=== PATIENT | female | born 1995 | race African-American/Black ===

== ENCOUNTER 2019-12-01 16:15 | Inpatient (IN) | payer MEDICAID, SELFPAY ==
[~2019-12-01] VITALS: Ht 167.6 cm; Wt 113.4 kg
[2019-12-01] MEDS ORDERED: PENICILLIN G BENZATHINE L-A 1.2 MU/2 ML SYR IM ONE ×2 (17:10→17:51)
[2019-12-01 18:30] VITALS: BP 122/66
[2019-12-01] MEDS ORDERED: PRETAB PO (18:37)
[2019-12-01] MEDS ORDERED: FERR-212 PO (18:37)
[2019-12-01] MEDS ORDERED: OXYTOCIN 20 UNITS/LR PREMIX 1,000 ML IV SCH (19:55)
[2019-12-01 21:19] LABS: APPEARANCE,URINE HAZY (CLEAR); BILIRUBIN,URINE NEGATIVE (NEGATIVE); BLOOD, URINE NEGATIVE (NEGATIVE); COLOR,URINE YELLOW (YELLOW); LEUKOCYTE ESTERASE ,URINE 3+ (NEGATIVE); NITRITE, URINE NEGATIVE (NEGATIVE); PH,URINE 6.5 (5.0-9.0); UGLUCOSE NEGATIVE (NEGATIVE)
[2019-12-01 21:27] LABS: BARBITURATE, URINE NEGATIVE ng/ml (NEG <=200); BENZODIAZEPINE, URINE NEGATIVE ng/mL (NEG <=200); CANNABINOID, URINE NEGATIVE ng/mL (NEG <=50); COCAINE, URINE NEGATIVE ng/mL (NEG <=300); OPIATE, URINE NEGATIVE ng/mL (NEG <=2000); PHENCYCLIDINE SCREEN,URINE NEGATIVE ng/mL (NEG <=25)
[2019-12-01 21:30] LABS: RBC,URINE 0-5 /HPF (0-5); WBC,URINE 60-80 /HPF (0-5)
[2019-12-01 21:31] LABS: YEAST,URINE Few /HPF (None Seen)
[2019-12-01 21:38] LABS: BASOPHILS % (AUTO) 0.4 % (0.0-2.0); EOSINOPHILS # (AUTO) 0.1 K/uL (0-0.4); EOSINOPHILS % (AUTO) 1.3 % (0.0-4.0); HEMATOCRIT 27.3 % (36-48); HEMOGLOBIN 8.4 g/dL (12.0-16.0); LYMPHOCYTES # (AUTO) 1.9 K/uL (2.5-16.5); LYMPHOCYTES % (AUTO) 23.4 % (20.5-51.1); MEAN CORPUSCULAR HEMOGLOBIN 22 pg (27-31); MEAN CORPUSCULAR HGB CONC 31 g/dL (33-37); MEAN CORPUSCULAR VOLUME 73.3 fL (80-94); MONOCYTES # (AUTO) 0.9 K/uL (0.8-1.0); MONOCYTES % (AUTO) 10.8 % (1.7-9.3); NEUTROPHILS # (AUTO) 5.1 K/uL (1.8-7.7); NEUTROPHILS % (AUTO) 64.1 % (42.2-75.2); PLATELET COUNT (AUTO) 215 K/uL (140-450); RED BLOOD CELL COUNT(AUTO) 3.72 MIL/uL (4.20-5.40); RED CELL DISTRIBUTION WIDTH 18.1 % (11.6-13.7); WHITE BLOOD COUNT (AUTO) 7.9 K/uL (4.8-10.8)
[2019-12-01 21:53] LABS: ALBUMIN 2.5 g/dL (3.4-5.0); CARBON DIOXIDE 21.6 mmol/L (21-32); CREATININE 0.8 mg/dL (0.6-1.3); POTASSIUM 3.6 mmol/L (3.5-5.1); TOTAL BILIRUBIN 0.2 mg/dL (0.0-1.0)
[2019-12-02] MEDS ORDERED: MORPHINE SULFATE 5 MG/ML VIAL IVP PRN (08:00)
[2019-12-02] MEDS ORDERED: ONDANSETRON 4 MG/2 ML VIAL IVP PRN (08:00)
[2019-12-02] MEDS ORDERED: ONDANSETRON 4 MG/2 ML VIAL ONE (08:04)
[2019-12-02] MEDS ORDERED: MORPHINE SULFATE 10 MG/ML VIAL ONE (08:04)
[2019-12-02] MEDS ORDERED: ROPIVACAINE 0.2%/NS PREMIX 200 ML EPI ONE (09:16)
[2019-12-02] MEDS: LACTATED RINGERS 1,000 ML IV SCH ×2 (09:54→16:58)
[2019-12-02] MEDS ORDERED: ROPIVACAINE 0.2%/NS PREMIX 100 ML EPI SCH (10:00)
[2019-12-02] MEDS ORDERED: ROPIVACAINE 0.2%/NS PREMIX 200 ML EPI SCH (10:15)
[2019-12-02] MEDS ORDERED: METHYLERGONOVINE 0.2 MG/ML AMP IM PRN (20:10)
[2019-12-02] MEDS ORDERED: MEASLES, MUMPS, AND RUBELLA 1 VIAL SQVAC PRN (20:10)
[2019-12-02] MEDS ORDERED: SIMETHICONE 80 MG TAB.CHEW PO PRN (20:10)
[2019-12-02] MEDS ORDERED: OXYTOCIN 10 UNITS/ML VIAL IM PRN (20:10)
[2019-12-02] MEDS ORDERED: BENZOCAINE/MENTHOL 20%-0.5% 60 GM CAN TP PRN (20:10)
[2019-12-02] MEDS ORDERED: IBUPROFEN 800 MG TAB PO PRN (20:10)
[2019-12-02] MEDS ORDERED: METHYLERGONOVINE 0.2 MG TAB PO PRN (20:10)
[2019-12-02] MEDS ORDERED: IBUPROFEN 600 MG TAB PO PRN (20:10)
[2019-12-02] MEDS ORDERED: DOCUSATE SODIUM 100 MG GELCAP PO PRN (20:10)
[2019-12-02] MEDS ORDERED: bisacodyL 5 MG TABEC PO PRN (20:10)
[2019-12-02] MEDS ORDERED: IBUPROFEN 600 MG TAB ONE (21:00)
[2019-12-03] MEDS: IBUPROFEN 600 MG TAB PO PRN ×3 (04:33→18:20)
[2019-12-03 07:24] LABS: HEMATOCRIT 25.3 % (36-48); HEMOGLOBIN 7.8 g/dL (12.0-16.0)
--- NOTE | 2019-12-03 09:59 | NUR ---
PATIENT HAS BEEN SCREENED AND CATEGORIZED LOW NUTRITION RISK. PATIENT WILL BE SEEN WITHIN 7 DAYS OF ADMISSION. 12/07/[address]
[2019-12-03] MEDS ORDERED: FLUCONAZOLE 100 MG TAB PO SCH (13:05)
[2019-12-04] MEDS: IBUPROFEN 600 MG TAB PO PRN (00:49)
[2019-12-04 07:18] LABS: HEMOGLOBIN 7.4 g/dL (12.0-16.0)
[2019-12-04] MEDS ORDERED: FLUCONAZOLE 100 MG TAB PO SCH (09:00)
== END 2019-12-04 09:50 | disposition home or self-care (01) | DRG 560 ==
LOC: MLD 16:15 → OBSVTOIN 20:03 → MFCC 12-02 22:20
PROVIDERS: ADMIT Obstetrics & Gynecology; ATTEND Obstetrics & Gynecology
PROC: 10E0XZZ Delivery of Products of Conception, External Approach (ICD-10-PCS; principal; 2019-12-02)
PROC: 10907ZC Drainage of Amniotic Fluid, Therapeutic from Products of Conception, Via Natural or Artificial Opening (ICD-10-PCS; 2019-12-02)
PROC: 3E033VJ Introduction of Other Hormone into Peripheral Vein, Percutaneous Approach (ICD-10-PCS; 2019-12-02)
PROC: 3E0R3BZ Introduction of Anesthetic Agent into Spinal Canal, Percutaneous Approach (ICD-10-PCS; 2019-12-02)
PROC: 00HU33Z Insertion of Infusion Device into Spinal Canal, Percutaneous Approach (ICD-10-PCS; 2019-12-02)
PROC: 3E0234Z Introduction of Serum, Toxoid and Vaccine into Muscle, Percutaneous Approach (ICD-10-PCS; 2019-12-02)
DX: O76 Abnormality in fetal heart rate and rhythm complicating labor and delivery (principal); O60.23X0 Term delivery with preterm labor, third trimester, not applicable or unspecified; Z3A.38 38 weeks gestation of pregnancy; Z37.0 Single live birth; O77.0 Labor and delivery complicated by meconium in amniotic fluid; O70.0 First degree perineal laceration during delivery; O98.12 Syphilis complicating childbirth; A53.9 Syphilis, unspecified; O13.4 Gestational [pregnancy-induced] hypertension without significant proteinuria, complicating childbirth; Z20.828 Contact with and (suspected) exposure to other viral communicable diseases; Z23 Encounter for immunization
CPT/HCPCS: G0378 ×4; 36415; 51702; 59409; 76805; 76819; 80053; 80305; 81001; 85018; 85025; 86592; 86886; 86900; 86901; 87086; 87653-90; J0561; J2270; J2405; J2590; J2795; J7120; Q0092; U0003-CS

== ENCOUNTER 2020-11-10 09:06 | Emergency (ER) | payer MEDICAID, OTHER, SELFPAY ==
[~2020-11-10] VITALS: Ht 165.1 cm; Wt 104.3 kg
[~2020-11-10 09:06] MED LIST: FERR-212 PO; PRETAB PO
[2020-11-10 09:08] VITALS: BP 147/75
--- NOTE | 2020-11-10 09:27 | NUR ---
25 YEAR OLD FEMALE COMPLAINS OF CRAMPING X 2 DAYS. PT STATES SHE IS WITH LMS 2 MONTHS AGO. PT DENIES VOMITTING OR DIARRHEA, BUT HAS NAUSEA. PT DENIES VAGINAL BLEEDING. AOX4, BREATHING EVEN AND UNLABORED, SKIN WARM AND DRY. BED IN LOWEST POSITION, LOCKED, BED RAIL UPX1. PMH - ASTHMA, SLEEP APNEA ALLERGIES - NKA
[2020-11-10 09:45] LABS: APPEARANCE,URINE HAZY (CLEAR); BILIRUBIN,URINE NEGATIVE (NEGATIVE); BLOOD, URINE NEGATIVE (NEGATIVE); COLOR,URINE YELLOW (YELLOW); LEUKOCYTE ESTERASE ,URINE 1+ (NEGATIVE); NITRITE, URINE NEGATIVE (NEGATIVE); UGLUCOSE NEGATIVE (NEGATIVE)
[2020-11-10 09:53] LABS: BASOPHILS # (AUTO) 0.1 K/uL (0.00-0.22); EOSINOPHILS # (AUTO) 0.1 K/uL (0-0.4); EOSINOPHILS % (AUTO) 1.4 % (0.0-4.0); HEMATOCRIT 30.8 % (36-48); HEMOGLOBIN 9.7 g/dL (12.0-16.0); LYMPHOCYTES # (AUTO) 2.1 K/uL (2.5-16.5); LYMPHOCYTES % (AUTO) 30.1 % (20.5-51.1); MEAN CORPUSCULAR HEMOGLOBIN 22 pg (27-31); MEAN CORPUSCULAR HGB CONC 32 g/dL (33-37); MEAN CORPUSCULAR VOLUME 69.6 fL (80-94); MONOCYTES # (AUTO) 0.6 K/uL (0.8-1.0); MONOCYTES % (AUTO) 8.6 % (1.7-9.3); NEUTROPHILS # (AUTO) 4.2 K/uL (1.8-7.7); NEUTROPHILS % (AUTO) 58.9 % (42.2-75.2); PLATELET COUNT (AUTO) 288 K/uL (140-450); RED BLOOD CELL COUNT(AUTO) 4.42 MIL/uL (4.20-5.40); RED CELL DISTRIBUTION WIDTH 20.7 % (11.6-13.7); WHITE BLOOD COUNT (AUTO) 7.1 K/uL (4.8-10.8)
[2020-11-10 10:01] LABS: RBC,URINE 0-5 /HPF (0-5)
[2020-11-10 10:02] LABS: URINE AMORPHOUS URATE 1+ /HPF (None Seen)
--- NOTE | 2020-11-10 10:30 | NUR ---
PT ALERT AND AWAKE, BREATHING EVEN AND UNLABORED. NO DISTRESS NOTED.
[2020-11-10 11:45] VITALS: BP 147/75
--- NOTE | 2020-11-10 11:45 | NUR ---
Patient discharged with v/s stable. Written and verbal after care instructions about abdominal pain during , first trimester of given and explained. Patient verbalized understanding. Ambulatory with steady gait. All questions addressed prior to discharge. Advised to follow up with PMD.
== END 2020-11-10 11:45 | disposition home or self-care (01) ==
LOC: MED 09:06
DX: O26.891 Other specified pregnancy related conditions, first trimester (principal); R10.30 Lower abdominal pain, unspecified; F17.210 Nicotine dependence, cigarettes, uncomplicated; J45.909 Unspecified asthma, uncomplicated; Z3A.10 10 weeks gestation of pregnancy; Z79.899 Other long term (current) drug therapy; Z71.6 Tobacco abuse counseling
CPT/HCPCS: 36415; 76801; 81001; 81025; 84702; 85025; 87086; 87186; 99284

== ENCOUNTER 2021-05-16 21:51 | Inpatient (IN) | payer OTHER, SELFPAY ==
[~2021-05-16] VITALS: Ht 167.6 cm; Wt 136.1 kg
[2021-05-16 22:37] VITALS: BP 120/56
[2021-05-16] MEDS ORDERED: OXYTOCIN 20 UNITS in LACTATED RINGERS 1,000 ML IV SCH (23:20)
[2021-05-16] MEDS ORDERED: AMPICILLIN 2,000 MG VIAL ONE (23:32)
[2021-05-16] MEDS: LACTATED RINGERS 1,000 ML IV SCH (23:38)
[2021-05-17] MEDS ORDERED: AMPICILLIN 2,000 MG in NACL 0.9% 100 ML IV SCH ×2
[2021-05-17 00:20] LABS: BASOPHILS % (AUTO) 0.5 % (0.0-2.0); BILIRUBIN,URINE NEGATIVE (NEGATIVE); BLOOD, URINE NEGATIVE (NEGATIVE); COLOR,URINE YELLOW (YELLOW); EOSINOPHILS # (AUTO) 0.2 K/uL (0-0.4); EOSINOPHILS % (AUTO) 2.6 % (0.0-4.0); HEMATOCRIT 28.3 % (36-48); HEMOGLOBIN 9.2 g/dL (12.0-16.0); LEUKOCYTE ESTERASE ,URINE 1+ (NEGATIVE); LYMPHOCYTES # (AUTO) 1.6 K/uL (2.5-16.5); LYMPHOCYTES % (AUTO) 25.8 % (20.5-51.1); MEAN CORPUSCULAR HEMOGLOBIN 25 pg (27-31); MEAN CORPUSCULAR HGB CONC 33 g/dL (33-37); MEAN CORPUSCULAR VOLUME 77.2 fL (80-94); MONOCYTES # (AUTO) 0.9 K/uL (0.8-1.0); MONOCYTES % (AUTO) 14.8 % (1.7-9.3); NEUTROPHILS # (AUTO) 3.6 K/uL (1.8-7.7); NEUTROPHILS % (AUTO) 56.3 % (42.2-75.2); NITRITE, URINE NEGATIVE (NEGATIVE); PH,URINE 6.5 (5.0-9.0); PLATELET COUNT (AUTO) 200 K/uL (140-450); RED BLOOD CELL COUNT(AUTO) 3.66 MIL/uL (4.20-5.40); UGLUCOSE NEGATIVE (NEGATIVE); WHITE BLOOD COUNT (AUTO) 6.4 K/uL (4.8-10.8)
[2021-05-17 00:30] LABS: APPEARANCE,URINE SLIGHTLY HAZY (CLEAR)
[2021-05-17 00:32] LABS: RBC,URINE 0-5 /HPF (0-5)
[2021-05-17 00:33] LABS: WBC,URINE 60-80 /HPF (0-5); YEAST,URINE Rare /HPF (None Seen)
[2021-05-17 00:34] LABS: BARBITURATE, URINE NEGATIVE ng/ml (NEG <=200); BENZODIAZEPINE, URINE NEGATIVE ng/mL (NEG <=200); CANNABINOID, URINE POSITIVE ng/mL (NEG <=50); COCAINE, URINE NEGATIVE ng/mL (NEG <=300); OPIATE, URINE NEGATIVE ng/mL (NEG <=2000); PHENCYCLIDINE SCREEN,URINE NEGATIVE ng/mL (NEG <=25)
[2021-05-17 00:38] LABS: ALBUMIN 2.5 g/dL (3.4-5.0); CREATININE 0.6 mg/dL (0.6-1.3); TOTAL BILIRUBIN 0.1 mg/dL (0.0-1.0)
[2021-05-17 01:16] LABS: URINE TOTAL PROTEIN 31.3 mg/dL (0-12)
[2021-05-17 01:45] LABS: PROTHROMBIN TIME 10.2 secs (10.8-13.4)
[2021-05-17] MEDS: MISOPROSTOL 25 MCG TAB VG PRN ×3 (02:29→13:00)
[2021-05-17] MEDS ORDERED: AMPICILLIN 1,000 MG VIAL ONE (03:33)
[2021-05-17] MEDS ORDERED: AMPICILLIN 1,000 MG in NACL 0.9% 50 ML IV SCH (04:00)
[2021-05-17] MEDS ORDERED: MORPHINE SULFATE 5 MG/ML VIAL IVP PRN (06:30)
[2021-05-17] MEDS ORDERED: ONDANSETRON 4 MG/2 ML VIAL IVP PRN (06:30)
[2021-05-17] MEDS: LACTATED RINGERS 1,000 ML IV SCH ×3 (07:02→23:00)
--- NOTE | 2021-05-17 10:26 | NUR ---
PATIENT HAS BEEN SCREENED AND CATEGORIZED LOW NUTRITION RISK. PATIENT WILL BE SEEN WITHIN 7 DAYS OF ADMISSION. 05/23/[address]
[2021-05-17] MEDS ORDERED: OXYTOCIN 20 UNITS/LR PREMIX 1,000 ML IV ONE (23:43)
[2021-05-18] MEDS: LACTATED RINGERS 1,000 ML IV SCH ×2 (06:25→12:44)
[2021-05-18] MEDS ORDERED: ROPIVACAINE 0.2%/NS PREMIX 200 ML EPI ONE (09:49)
[2021-05-18] MEDS ORDERED: ROPIVACAINE 0.2%/NS PREMIX 200 ML EPI SCH (09:55)
[2021-05-18] MEDS ORDERED: bisacodyL 10 MG SUPP RC PRN (18:10)
[2021-05-18] MEDS ORDERED: BENZOCAINE/MENTHOL 20%-0.5% 60 GM CAN TP PRN (18:10)
[2021-05-18] MEDS ORDERED: HYDROcodone/APAP 5/325 MG 1 TAB TAB PO PRN (18:10)
[2021-05-18] MEDS ORDERED: METHYLERGONOVINE 0.2 MG/ML AMP IM PRN (18:10)
[2021-05-18] MEDS ORDERED: oxyCODONE/APAP 5/325 MG 1 TAB TAB PO PRN (18:10)
[2021-05-18] MEDS ORDERED: MEASLES, MUMPS, AND RUBELLA 1 VIAL SQVAC ONE (18:10)
[2021-05-18] MEDS ORDERED: TEMAZEPAM 15 MG CAP PO PRN (18:10)
[2021-05-18] MEDS ORDERED: IBUPROFEN 800 MG TAB PO PRN (18:10)
[2021-05-18] MEDS ORDERED: MEASLES, MUMPS, AND RUBELLA 1 VIAL SQVAC PRN (18:30)
[2021-05-18] MEDS ORDERED: DOCUSATE SOD/SENNA 50/8.6 MG 1 TAB PO SCH (21:00)
[2021-05-19 06:07] LABS: HEPATITIS B SURFACE ANTIGEN Negative (Negative)
[2021-05-19 07:06] LABS: HEMATOCRIT 31.8 % (36-48); HEMOGLOBIN 10.3 g/dL (12.0-16.0)
== END 2021-05-19 15:15 | disposition home or self-care (01) | DRG 560 ==
LOC: MLD 21:51 → MFCC 05-18 17:30
PROVIDERS: ADMIT Obstetrics & Gynecology; ATTEND Obstetrics & Gynecology
PROC: 3E0P7GC Introduction of Other Therapeutic Substance into Female Reproductive, Via Natural or Artificial Opening (ICD-10-PCS; 2021-05-16)
PROC: 10E0XZZ Delivery of Products of Conception, External Approach (ICD-10-PCS; principal; 2021-05-18)
PROC: 3E0R3BZ Introduction of Anesthetic Agent into Spinal Canal, Percutaneous Approach (ICD-10-PCS; 2021-05-18)
PROC: 00HU33Z Insertion of Infusion Device into Spinal Canal, Percutaneous Approach (ICD-10-PCS; 2021-05-18)
DX: O13.4 Gestational [pregnancy-induced] hypertension without significant proteinuria, complicating childbirth (principal); Z37.0 Single live birth; O36.63X0 Maternal care for excessive fetal growth, third trimester, not applicable or unspecified; Z20.822 Contact with and (suspected) exposure to COVID-19; O99.214 Obesity complicating childbirth; Z3A.37 37 weeks gestation of pregnancy
CPT/HCPCS: 36415; 51702; 59200; 59409; 76815; 80053; 80305; 81001; 82570; 84550; 85018; 85025; 85384; 85610; 85730; 86592; 86762; 86886; 86900; 86901; 87086; 87340; 87653-90; J0290; J2590; J2795; Q0092